=== PATIENT | female | born 1955 | race African-American/Black ===

== ENCOUNTER → 2017-05-20 16:30 | Outpatient (CLI) | payer MEDICARE ==
[2010-06-30 03:19] VITALS: BMI 35.0
== END | disposition home or self-care (01) ==
LOC: D.MAMMO 09:15
DX: Z12.31 Encounter for screening mammogram for malignant neoplasm of breast (principal)

== ENCOUNTER → 2017-10-16 09:21 | Outpatient (CLI) | payer MEDICARE ==
[2010-06-30 03:19] VITALS: BMI 35.0
== END | disposition home or self-care (01) ==
LOC: D.MRI 09:21
DX: M25.511 Pain in right shoulder (principal)

== ENCOUNTER 2018-03-30 18:26 | Emergency (ER) | payer MEDICARE ==
[~2018-03-30] VITALS: Ht 165.1 cm; Wt 90.9 kg
[2018-03-30 18:29] VITALS: Ht 165.1 cm; Wt 90.9 kg
[2018-03-30] MEDS ORDERED: K-DUR20 MEQ PO (18:31)
[2018-03-30] MEDS ORDERED: OMEPRAZOLE20 M1 PO (18:32)
[2018-03-30] MEDS ORDERED: PLAVIX75 MG PO (18:32)
[2018-03-30 19:03] LABS: APPEARANCE HAZY (CLEAR); BILIRUBIN NEGATIVE (NEGATIVE); COLOR YELLOW (YELLOW); GLUCOSE NEGATIVE (NEGATIVE); KETONE NEGATIVE (NEGATIVE); NITRITE POSITIVE (NEGATIVE); PROTEIN NEGATIVE (NEGATIVE); UROBILINOGEN NORMAL (NORMAL)
[2018-03-30 19:04] LABS: BASOPHILS 0.2 % (0-2); EOSINOPHILS 1.6 % (0-7); HEMOGLOBIN 12.8 g/dL (12-16); IMMATURE GRANULOCYTES 0.1 % (0-5); LYMPHOCYTES 31.9 % (15-50); MCH 28.1 pg (26.0-34.0); MCV 87.7 fL (80.0-100.0); MEAN PLATELET VOLUME 11.3 fL (7.4-10.4); MONOCYTES 3.9 % (2-11); NEUTROPHILS 62.3 % (40-80); PLATELET COUNT 171 10x3/uL (130-400); RBC 4.56 10x6/uL (4.00-5.40); RDW 12.9 % (11.5-14.5); WBC 8.5 10x3/uL (4.8-10.8)
[2018-03-30 19:06] LABS: BACTERIA MANY /hpf (NONE SEEN); EPITHELIAL CELLS 0-5 /hpf (0-5); RED CELLS - URINE 0-5 /hpf (0-5)
[2018-03-30 19:19] LABS: ALBUMIN 3.1 g/dL (3.4-5.0); ANION GAP 7.2 mmol/L (8-16); BILIRUBIN - TOTAL 0.33 mg/dL (0.2-1.3); CALCIUM 8.4 mg/dL (8.5-10.1); CARBON DIOXIDE 27.9 mmol/L (21.0-32.0); CREATININE - SERUM 0.9 mg/dL (0.6-1.3); POTASSIUM - SERUM 3.1 mmol/L (3.5-5.1); PROTEIN - SERUM 7.1 g/dL (6.4-8.2)
[2018-03-30] MEDS ORDERED: MACROBID100 MG PO (21:48)
[2018-03-30 22:15] VITALS: BP 148/90
== END 2018-03-30 22:15 | disposition home or self-care (01) ==
LOC: D.ER 18:26
PROVIDERS: Family Medicine
DX: R10.11 Right upper quadrant pain (principal); E87.6 Hypokalemia; N39.0 Urinary tract infection, site not specified; I10 Essential (primary) hypertension; F17.200 Nicotine dependence, unspecified, uncomplicated

== ENCOUNTER 2019-10-24 19:59 | Inpatient (IN) | payer MEDICARE, MEDICAID ==
[~2019-10-24] VITALS: Ht 165.1 cm; Wt 90.7 kg
[~2019-10-24 19:59] MED LIST: K-DUR20 MEQ PO; MACROBID100 MG PO; OMEPRAZOLE20 M1 PO; PLAVIX75 MG PO
[2019-10-24 20:00] VITALS: BP 124/70
[2019-10-24 20:46] LABS: BASOPHILS 0.2 % (0-2); EOSINOPHILS 0.2 % (0-7); HEMATOCRIT 30.5 % (36.0-48.0); HEMOGLOBIN 9.9 g/dL (12-16); IMMATURE GRANULOCYTES 0.4 % (0-5); LYMPHOCYTES 17.9 % (15-50); MCH 27.5 pg (26.0-34.0); MCHC 32.5 g/dL (31.0-37.0); MCV 84.7 fL (80.0-100.0); MEAN PLATELET VOLUME 10.2 fL (7.4-10.4); MONOCYTES 4.8 % (2-11); NEUTROPHILS 76.5 % (40-80); RDW 12.7 % (11.5-14.5); WBC 12.5 10x3/uL (4.8-10.8)
[2019-10-24 20:52] LABS: APTT 39.1 SECONDS (22.8-39.4); INR 0.98 (0.85-1.17)
[2019-10-24 20:53] LABS: PLATELET COUNT 325 10x3/uL (130-400)
[2019-10-24 20:58] LABS: BILIRUBIN NEGATIVE (NEGATIVE); KETONE NEGATIVE (NEGATIVE); NITRITE NEGATIVE (NEGATIVE); UROBILINOGEN NORMAL (NORMAL)
[2019-10-24 21:06] LABS: BACTERIA FEW /hpf (NONE SEEN); EPITHELIAL CELLS 0-5 /hpf (0-5); WHITE CELLS - URINE 0-5 /hpf (0-5)
[2019-10-24 21:10] VITALS: BP 134/68
[2019-10-24 21:19] LABS: ALBUMIN 2.2 g/dL (3.4-5.0); ALKALINE PHOSPHATASE 111 U/L (30-120); ALT (SGPT) 28 U/L (10-68); CALC OSMOLALITY 260 mosm/kg (275-300); CALCIUM 8.7 mg/dL (8.5-10.1); CARBON DIOXIDE 28.1 mmol/L (21.0-32.0); CHLORIDE - SERUM 94 mmol/L (98-107); CREATINE KINASE 196 UL (21-215); CREATININE - SERUM 0.7 mg/dL (0.6-1.3); GLUCOSE 107 mg/dL (74-106); PRO BNP 132 pg/mL (0-125); PROTEIN - SERUM 7.5 g/dL (6.4-8.2); SODIUM 131 mmol/L (136-145); THYROID STIMULATING HORMONE 1.05 uIU/mL (0.36-3.74); UREA NITROGEN 6 mg/dL (7-18); eGFR NON AFRICAN AMERICAN 89 mL/min (90-120)
[2019-10-24 21:30] VITALS: BP 127/63
[2019-10-24 21:40] LABS: C-REACTIVE PROTEIN 19.3 mg/dL (0.0-0.9); TROPONIN-I < 0.017 ng/mL (0.000-0.060)
[2019-10-24 21:46] LABS: POTASSIUM - SERUM 2.7 mmol/L (3.5-5.1)
--- NOTE | 2019-10-24 23:13 | NUR ---
RECIEVED TO ROOM. AWAKE,ALERT.NO COMPLAINTS AT PRESENT. IV TO LFA INTACT WITHOUT REDNESS OR EDEMA NOTED. OPEN SORE TO RIGHT ANKLE WITHOUT DRAINAGE NOTED. FOUL SMELL. FOR OR IN AM. CL IN REACH
[2019-10-25 04:00] VITALS: BP 135/75
[2019-10-25 05:00] VITALS: BP 124/70; BMI 33.3
[2019-10-25 09:27] VITALS: BP 114/69
[2019-10-25 10:39] VITALS: Ht 165.1 cm; Wt 90.7 kg
--- NOTE | 2019-10-25 15:38 | NUR ---
IV INFILTRATED. NEW 20G PLACED RIGHT AC. TOLERATED WELL. CONTINUING TO MONITOR
[2019-10-25 17:48] VITALS: BP 132/74
--- NOTE | 2019-10-25 19:55 | NUR ---
oliver in bed with alysia at bedside. sleeping at times. iv to right ac with ns at 125ml/hr. no needs at this time. call light and water in reach.
[2019-10-25 20:28] VITALS: BP 167/77
[2019-10-26 00:24] VITALS: BP 172/74
[2019-10-26 07:19] LABS: BASOPHILS 0.2 % (0-2); EOSINOPHILS 0.2 % (0-7); HEMATOCRIT 30.2 % (36.0-48.0); HEMOGLOBIN 9.6 g/dL (12-16); IMMATURE GRANULOCYTES 0.3 % (0-5); LYMPHOCYTES 13.5 % (15-50); MCHC 31.8 g/dL (31.0-37.0); MCV 84.8 fL (80.0-100.0); MONOCYTES 4.7 % (2-11); NEUTROPHILS 81.1 % (40-80); PLATELET COUNT 319 10x3/uL (130-400); RBC 3.56 10x6/uL (4.00-5.40); RDW 12.8 % (11.5-14.5); WBC 11.9 10x3/uL (4.8-10.8)
[2019-10-26 07:39] LABS: ALBUMIN 2.1 g/dL (3.4-5.0); ALKALINE PHOSPHATASE 151 U/L (30-120); ALT (SGPT) 29 U/L (10-68); BILIRUBIN - TOTAL 0.45 mg/dL (0.2-1.3); CALC OSMOLALITY 271 mosm/kg (275-300); CALCIUM 8.2 mg/dL (8.5-10.1); CARBON DIOXIDE 27.8 mmol/L (21.0-32.0); CHLORIDE - SERUM 99 mmol/L (98-107); GLUCOSE 95 mg/dL (74-106); MAGNESIUM - SERUM 1.8 mg/dL (1.8-2.4); PROTEIN - SERUM 6.4 g/dL (6.4-8.2); SODIUM 137 mmol/L (136-145); UREA NITROGEN 6 mg/dL (7-18); VANCOMYCIN - TROUGH 7.7 ug/mL (10.0-20.0)
[2019-10-26 07:41] LABS: CREATININE - SERUM 0.5 mg/dL (0.6-1.3); POTASSIUM - SERUM 3.4 mmol/L (3.5-5.1); eGFR NON AFRICAN AMERICAN > 90 mL/min (90-120)
[2019-10-26 08:41] VITALS: BP 131/76
[2019-10-26 13:12] VITALS: BP 140/77
--- NOTE | 2019-10-26 16:48 | NUR ---
RECEIVED REPORT FROM BEE ADAIR IN RECOVERY.
[2019-10-26 17:00] VITALS: BP 114/67
--- NOTE | 2019-10-26 17:06 | NUR ---
BACK IN ROOM. RESTING WITH EYES CLOSED. EASY TO WAKE. VS STABLE: BP: 110/64 HR: 76 SPO2: 93 0N 1.5L/NC TEMP: 98.2 RIGHT BKA HAS WPUND V.A.C. AND WRAPPED WITH GUZMAN WRAP. DRESSING IS CLEAN, DRY AND INTACT. RLE ELEVATED ON A PILLOW. AT BEDSIDE. WILL CONTINUE TO MONITOR
--- NOTE | 2019-10-26 20:01 | NUR ---
RESTING IN BED NAPPING ALERT AND ORENTED ABLE TO VOICE NEEDS AND WANTS TO STAFF. IV TO LEFT AC WITH NS AT 125 ML/HR.DRESSING CLEAN DRY AND INTACT TO RIGHT BKA. NO NEESDS AT THIS TIME. HUSBEN AT BEDSIDE.
[2019-10-27 04:00] VITALS: BP 115/65
[2019-10-27 06:44] LABS: BASOPHILS 0 % (0-2); EOSINOPHILS 0 % (0-7); HEMATOCRIT 27.9 % (36.0-48.0); HEMOGLOBIN 8.7 g/dL (12-16); IMMATURE GRANULOCYTES 0.3 % (0-5); LYMPHOCYTES 12.8 % (15-50); MCH 26.4 pg (26.0-34.0); MCHC 31.2 g/dL (31.0-37.0); MCV 84.8 fL (80.0-100.0); MEAN PLATELET VOLUME 10.3 fL (7.4-10.4); MONOCYTES 5.7 % (2-11); NEUTROPHILS 81.2 % (40-80); PLATELET COUNT 300 10x3/uL (130-400); RBC 3.29 10x6/uL (4.00-5.40); RDW 12.8 % (11.5-14.5); WBC 12.8 10x3/uL (4.8-10.8)
[2019-10-27 06:47] LABS: ALKALINE PHOSPHATASE 114 U/L (30-120); ALT (SGPT) 28 U/L (10-68); BILIRUBIN - TOTAL 0.21 mg/dL (0.2-1.3); CALCIUM 7.6 mg/dL (8.5-10.1); CARBON DIOXIDE 24.2 mmol/L (21.0-32.0); CHLORIDE - SERUM 103 mmol/L (98-107); GLUCOSE 112 mg/dL (74-106); MAGNESIUM - SERUM 1.8 mg/dL (1.8-2.4); POTASSIUM - SERUM 3.1 mmol/L (3.5-5.1); SODIUM 136 mmol/L (136-145)
[2019-10-27 06:57] LABS: ALBUMIN 1.5 g/dL (3.4-5.0); CALC OSMOLALITY 271 mosm/kg (275-300); CREATININE - SERUM 0.7 mg/dL (0.6-1.3); UREA NITROGEN 9 mg/dL (7-18); eGFR NON AFRICAN AMERICAN 89 mL/min (90-120)
[2019-10-27 09:36] VITALS: BP 125/66
--- NOTE | 2019-10-27 09:55 | OP ---
PATIENT NAME: YEIMI SAUCEDO MEDICAL RECORD: [id number] :51 LOCATION:D[id number] ADMISSION DATE:10/24/19 SURGEON: RAJESH CONNOR DO DATE OF OPERATION: 10/26/2019 PROCEDURE PERFORMED: Right below-knee amputation. PREOPERATIVE DIAGNOSIS: Right lower limb ischemia, peripheral vascular disease, and foot infection. POSTOPERATIVE DIAGNOSIS: Right lower limb ischemia, peripheral vascular disease, and foot infection. INDICATIONS: Ms. Saucedo is a 64-year-old female who has had a blood flow problems to the right lower extremity. She had stents put in, revascularized, that did not give blood flow back to the foot. She had been treated by another physician to try to save the foot, but to no avail. She was admitted from the ER, was due to see me in clinic, anyways for the same problem. I saw her in the ER and told her that we need to amputate it. We had her on the schedule for yesterday, but due to OR constraints, could not do it, it was Labor holiday. I told her I would do it today. I informed that she will be at risk for further infection, bleeding, damage to nerves and vessels in the area phantom pain, continued pain, reinfection of the stump and need for above-knee amputation and if this did not cut, blood clots, and even and she signed the consent. SURGEON: Rajesh Connor DO DESCRIPTION OF THE PROCEDURE: The patient received the block per anesthesia in the preoperative area and taken to operative suite, laid in supine position, given 2 grams Ancef preoperatively. The patient was sedated and LMA was placed. Right lower extremity was then prepped and draped in sterile fashion. A timeout was performed and everyone was agreeance with correct side, site, patient and procedure and I then began by marking out the incision and the right lower extremity was exsanguinated with a tourniquet and the tourniquet was inflated to 350 mmHg and was up for 22 minutes. I then began by cutting through the skin down to the fascia and then used the plasma blade to cut through the fascia, went compartment by compartment, tying off any vessels with saw. I was assisted by Hitesh Puga, certified surgical anesthesiologist assistant certified. He assisted with tying the vessels and with closing during the case. Once I had tied all the vessels coming through each compartment making a posterior flap with the gastroc. I cut the tibia and bevelled the cut on the anterior tibia and then cut the fibula cm above that. I then removed the leg and then confirmed all the vessels were tied and tied a few more that we did not get. The tourniquet was then let down. Any bleeding was coagulated with the Aquamantys. I then drilled holes in the tibia and with #2 Ethibond sutured up the gastroc, up over the stump of the tibia into place using a Neil-Saul stitch. The fascia was then closed with #1 Vicryl in a [id number] fashion and then the skin 2-0 Vicryl in inverted interrupted fashion or 2-0 Prolene in a horizontal mattress fashioned on the skin. She was then dressed with a Prevena VAC or the surface restore, and awakened and taken to recovery in stable condition. BLOOD LOSS: Minimal. COMPLICATIONS: None. OPERATIVE REPORT [id number] YEIMI SAUCEDO TRANSINT:[id number] Voice Confirmation ID: [id number] DOCUMENT ID: [id number] RAJESH CONNOR DO at 0955 CC: [id number] DICTATION DATE: 10/26/19 1543 EARLY CHILDHOOD ASSOCIATE: 10/27/19 0105 ADM IN [facility] [address] [place] [address]
[2019-10-27 13:24] VITALS: BP 114/62
[2019-10-27 18:21] VITALS: BP 128/72
[2019-10-27 20:00] VITALS: BP 108/53
[2019-10-28] VITALS: BP 131/67
[2019-10-28 04:00] VITALS: BP 128/67
[2019-10-28 07:16] LABS: BASOPHILS 0.1 % (0-2); EOSINOPHILS 0.4 % (0-7); HEMATOCRIT 27.3 % (36.0-48.0); HEMOGLOBIN 8.6 g/dL (12-16); IMMATURE GRANULOCYTES 0.5 % (0-5); LYMPHOCYTES 24.1 % (15-50); MCH 26.8 pg (26.0-34.0); MCHC 31.5 g/dL (31.0-37.0); MEAN PLATELET VOLUME 9.3 fL (7.4-10.4); MONOCYTES 5.3 % (2-11); NEUTROPHILS 69.6 % (40-80); PLATELET COUNT 284 10x3/uL (130-400); RBC 3.21 10x6/uL (4.00-5.40); WBC 11.1 10x3/uL (4.8-10.8)
[2019-10-28 07:34] LABS: ALBUMIN 1.6 g/dL (3.4-5.0); ALKALINE PHOSPHATASE 102 U/L (30-120); ALT (SGPT) 29 U/L (10-68); BILIRUBIN - TOTAL 0.36 mg/dL (0.2-1.3); CALC OSMOLALITY 271 mosm/kg (275-300); CALCIUM 7.7 mg/dL (8.5-10.1); CARBON DIOXIDE 26.8 mmol/L (21.0-32.0); CHLORIDE - SERUM 104 mmol/L (98-107); CREATININE - SERUM 0.6 mg/dL (0.6-1.3); GLUCOSE 87 mg/dL (74-106); MAGNESIUM - SERUM 1.6 mg/dL (1.8-2.4); POTASSIUM - SERUM 3.2 mmol/L (3.5-5.1); SODIUM 138 mmol/L (136-145); VANCOMYCIN - TROUGH 14.9 ug/mL (10.0-20.0); eGFR NON AFRICAN AMERICAN > 90 mL/min (90-120)
[2019-10-28 07:35] LABS: UREA NITROGEN 5 mg/dL (7-18)
--- NOTE | 2019-10-28 07:35 | NUR ---
PT IS RESTING IN BED WITH EYES OPEN. RESPIRATIONS ARE EVEN AND UNLABORED. PT IS AAO X 4 AND ANSWERS ALL QUESTIONS APPROPRIATLEY. DRESSING/WOUND VAC NOTED TO RIGHT STUMP. PT REPORTS PAIN. WILL ADDRESS. SEE EMAR. PT WITH PIV INFUSING PER ORDER TO LEFT FA WITHOUT DIFFICULTY. PT DENIES PRESENCE OF N/V/NUMBNESS/TINGLING AT THIS TIME. BED IS IN THE LOWEST POSITION. CALL LIGHT AND BEDSIDE TABLE ARE WITHIN REACH. SIDE RAILS X 2. FAMILY AT BEDSIDE. WILL CONT TO MONITOR.
[2019-10-28 09:48] VITALS: BP 119/63
--- NOTE | 2019-10-28 10:38 | MORECARE ---
CASE MANAGEMENT DISCHARGE SUMMARY PATIENT: YEIMI GAUTHIER UNIT: [id number] ADM DATE: 10/24/19 AGE: 64 : 53 SEX: F ROOM/BED: D.2240 AUTHOR: ABAD TARIQ PHYSICIAN: REFERRING PHYSICIAN: BARB TRINH MD DATE OF SERVICE: 10/28/19 Discharge Plan Patient Name: YEIMI GAUTHIER Facility: [facility]:[place] : 1955 Planned Disposition: Anticipated Discharge Date: Discharge Date: Expected LOS: Initial Reviewer: [email or web address] Initial Review Date: 10/28/2019 Generated: 10/28/19 11:37 am DCPIA - Discharge Planning Initial Assessment Updated by [email or web address]: [place]ney Park on 10/28/19 10:37 am * Is the patient Alert and Oriented? Yes * Preadmission Environment Home with Family * ADLs Independent * Equipment None * Community resources currently utilized None * Additional services required to return to the preadmission environment? Yes * Can the patient safely return to the preadmission environment? Yes * Has this patient been hospitalized within the prior 30 days at any hospital? No Patient Name: YEIMI GAUTHIER Page [phone] at 1038 All edits/amendments must be made on the electronic document DICTATION DATE: 10/28/19 1037 PUBLIC HEALTH ENGINEER: JANELLE 10/28/19 1037 RPT#: [id number] DC DATE: STATUS: ADM IN [facility] [address] [place] [address] END OF REPORT
--- NOTE | 2019-10-28 10:47 | MORECARE ---
CASE MANAGEMENT DISCHARGE SUMMARY PATIENT: YEIMI GAUTHIER UNIT: [id number] ADM DATE: 10/24/19 AGE: 64 : 53 SEX: F ROOM/BED: D.2240 AUTHOR: CHANDNI,DOC PHYSICIAN: REFERRING PHYSICIAN: BARB TRINH MD DATE OF SERVICE: 10/28/19 Discharge Plan Patient Name: YEIMI GAUTHIER Facility: [facility]:[place] : 1955 Planned Disposition: Anticipated Discharge Date: Discharge Date: Expected LOS: Initial Reviewer: [id number] Initial Review Date: 10/28/2019 Generated: 10/28/19 11:46 am Comments DCP- Discharge Planning Updated by [email or web address]: [place] Park on 10/28/19 9:[address] Patient Name: YEIMI GAUTHIER Admission Status: ER Accout number: [id number] Admission Date: 10-24-2019 : 1955 Admission Diagnosis:PAIN IN RIGHT FOOT Attending: GÉNESIS TRINH Current LOS: 4 Anticipated DC Date: Planned Disposition: Primary Insurance: [facility] MEDICARE SOLUTIONS Discharge Planning Comments: CM met with patient at bedside after explaining CM role and obtaining verbal consent. CM discussed availability / needs of home health, REHAB and medical equipment. PATIENT STATES HAS NO EQUIPMENT, YARON SIGNED FOR [facility]. I WILL CALL THEM TO GET HER EQUIPMENT SET UP. PATIENT WANTS TO GO HOME WITH HH, [facility]ON SIGNED FOR [facility] . I WILL FAX REFERRAL. CM TO FOLLOW AND ASSIST NEEDED. Geriatric Assistant: Daphney Park DCPIA - Discharge Planning Initial Assessment Updated by [email or web address]: [place] on 10/28/19 10:37 am * Is the patient Alert and Oriented? Yes * Preadmission Environment Home with Family * ADLs Independent * Equipment None * Community resources currently utilized None * Additional services required to return to the preadmission environment? Yes * Can the patient safely return to the preadmission environment? Yes * Has this patient been hospitalized within the prior 30 days at any hospital? No External Providers [facility] Next Contact Date: Service Request Date: Service Type: Resolution: Reviewer: Comments: External Provider: [facility] Next Contact Date: Service Request Date: Service Type: Resolution: Reviewer: Comments: Coverage Notice Reviewer: [id number] - [place] Notice Issued Date-Time: 10/28/2019 10:39 Notice Type: Patient Choice Letter Notice Delivered To: Patient Relationship to Patient: Driver Education Road Instructor Name: Delivery Method: HAND - Hand Delivered Monica Days: Prior Verbal Notification: Recipient Understood Notice: Yes Recipient Signature: Yes Med Rec Note Co-signed by Attending: Coverage Notice Comment: [facility] Last DP export: 10/28/19 9:38 a Patient Name: YEIMI GAUTHIER Page [phone] at 1047 All edits/amendments must be made on the electronic document DICTATION DATE: 10/28/19 1046 HOISTMAN: JANELLE 10/28/19 1046 RPT#: [id number] DC DATE: STATUS: ADM IN [facility] [address] [place] [address] END OF REPORT
[2019-10-28 12:00] VITALS: BP 128/76
[2019-10-28] MEDS ORDERED: BACTRIM DS TAB1 EAC1 PO (12:55)
[2019-10-28] MEDS ORDERED: HYDROCODON-ACE1 EA10 PO (13:20)
[2019-10-28] MEDS ORDERED: NICODERM CQ1 EAC3 TOPICAL (14:18)
--- NOTE | 2019-10-28 14:29 | NUR ---
PATIENT MAY RESUME HOME DOSE OF [facility]
--- NOTE | 2019-10-28 14:37 | MORECARE ---
CASE MANAGEMENT DISCHARGE SUMMARY PATIENT: YEIMI GAUTHIER UNIT: [id number] ADM DATE: 10/24/19 AGE: 64 : 53 SEX: F ROOM/BED: D.2240 AUTHOR: CHANDNI,DOC PHYSICIAN: REFERRING PHYSICIAN: BARB TRINH MD DATE OF SERVICE: 10/28/19 Discharge Plan Patient Name: YEIMI GAUTHIER Facility: [facility]:[place] : 1955 Planned Disposition: Anticipated Discharge Date: Discharge Date: Expected LOS: Initial Reviewer: [email or web address] Initial Review Date: 10/28/2019 Generated: 10/28/19 3:37 pm Comments DCP- Discharge Planning Updated by [email or web address]: [place] Park on 10/28/19 9:[address] Patient Name: YEIMI GAUTHIER Admission Status: ER Accout number: [id number] Admission Date: 10-24-2019 : 1955 Admission Diagnosis:PAIN IN RIGHT FOOT Attending: GÉNESIS TRINH Current LOS: 4 Anticipated DC Date: Planned Disposition: Primary Insurance: [facility] MEDICARE SOLUTIONS Discharge Planning Comments: CM met with patient at bedside after explaining CM role and obtaining verbal consent. CM discussed availability / needs of home health, REHAB and medical equipment. PATIENT STATES HAS NO EQUIPMENT, YARON SIGNED FOR [facility]. I WILL CALL THEM TO GET HER EQUIPMENT SET UP. PATIENT WANTS TO GO HOME WITH HH, Y[facility]ON SIGNED FOR [facility]. I WILL FAX REFERRAL. CM TO FOLLOW AND ASSIST NEEDED. Steam Heating Installer: Daphney Park DCPIA - Discharge Planning Initial Assessment Updated by [email or web address]: [place] on 10/28/19 10:37 am * Is the patient Alert and Oriented? Yes * Preadmission Environment Home with Family * ADLs Independent * Equipment None * Community resources currently utilized None * Additional services required to return to the preadmission environment? Yes * Can the patient safely return to the preadmission environment? Yes * Has this patient been hospitalized within the prior 30 days at any hospital? No Coverage Notice Reviewer: [id number] - [place] Notice Issued Date-Time: 10/28/2019 10:39 Notice Type: Patient Choice Letter Notice Delivered To: Patient Relationship to Patient: Leader Tier Name: Delivery Method: HAND - Hand Delivered Monica Days: Prior Verbal Notification: Recipient Understood Notice: Yes Recipient Signature: Yes Med Rec Note Co-signed by Attending: Coverage Notice Comment: [facility] Last DP export: 10/28/19 9:47 a Patient Name: YEIMI GAUTHIER Page [phone] at 1437 All edits/amendments must be made on the electronic document DICTATION DATE: 10/28/191436 NETEZZA ARCHITECT: JANELLE 10/28/191436 RPT#: [id number] DC DATE: STATUS: ADM IN [facility] [address] [place] [address] END OF REPORT
--- NOTE | 2019-10-28 16:20 | NUR ---
ALL DISCHARGE INSTRUCTIONS COVERED WITH PT. PT DENIES FURTHER QUESTIONS/CONCERNS AT THIS TIME. PIV FROM LEFT WRIST REMOVED WITH CATHETER TIP INTACT. DRESSING APPLIED. ALL DISCHARGE PAPERS SIGNED BY PT. (1) PRINTED RX GIVEN TO PT. ALL SIGNED DC PAPERS PLACED IN PT CHART.
--- NOTE | 2019-10-28 16:26 | NUR ---
PT TRANSPORTED FROM ROOM VIA WHEELCHAIR FOR TRANSPORTATION HOME. PT STATES THAT SHE HAS ASSISTANCE AT HOME AND WILL BE ABLE TO GET FROM CAR INTO HOUSE WITHOUT DIFFICULTY AND WOULD LIKE FOR WHEELCHAIR TO BE DELIVERED TO HER ADDRESS. PT DENIES FURTHER QUESTIONS/CONCERNS/NEEDS AT THIS TIME. PT THANKS THIS NURSE FOR CARE GIVEN DURING THIS SHIFT.
--- NOTE | 2019-10-29 08:55 | MORECARE ---
CASE MANAGEMENT DISCHARGE SUMMARY PATIENT: YEIMI GAUTHIER UNIT: [id number] ADM DATE: 10/24/19 AGE: 64 : 53 SEX: F ROOM/BED: D.2240 AUTHOR: CHANDNI,DOC PHYSICIAN: REFERRING PHYSICIAN: BARB TRINH MD DATE OF SERVICE: 10/29/19 Discharge Plan Patient Name: YEIMI GAUTHIER Facility: [facility]:[place] : 1955 Planned Disposition: Anticipated Discharge Date: Discharge Date: 10/28/2019 Expected LOS: Initial Reviewer: [email or web address] Initial Review Date: 10/28/2019 Generated: 10/29/19 9:54 am Comments DCP- Discharge Planning Updated by [email or web address]: [place] Park on 10/28/19 9:[address] Patient Name: YEIMI GAUTHIER Admission Status: ER Accout number: [id number] Admission Date: 10-24-2019 : 1955 Admission Diagnosis:PAIN IN RIGHT FOOT Attending: GÉNESIS TRINH Current LOS: 4 Anticipated DC Date: Planned Disposition: Primary Insurance: [facility] MEDICARE SOLUTIONS Discharge Planning Comments: CM met with patient at bedside after explaining CM role and obtaining verbal consent. CM discussed availability / needs of home health, REHAB and medical equipment. PATIENT STATES HAS NO EQUIPMENT, YARON SIGNED FOR [facility]. I WILL CALL THEM TO GET HER EQUIPMENT SET UP. PATIENT WANTS TO GO HOME WITH HH, YARON SIGNED FOR [facility]. I WILL FAX REFERRAL. CM TO FOLLOW AND ASSIST NEEDED. Resident Inspector: Daphney Park DCPIA - Discharge Planning Initial Assessment Updated by [id number]: [place] on 10/28/19 10:37 am * Is the patient Alert and Oriented? Yes * Preadmission Environment Home with Family * ADLs Independent * Equipment None * Community resources currently utilized None * Additional services required to return to the preadmission environment? Yes * Can the patient safely return to the preadmission environment? Yes * Has this patient been hospitalized within the prior 30 days at any hospital? No Coverage Notice Reviewer: [id number] - [place] Notice Issued Date-Time: 10/28/2019 10:39 Notice Type: Patient Choice Letter Notice Delivered To: Patient Relationship to Patient: Dry Food Products Mixer Name: Delivery Method: HAND - Hand Delivered Monica Days: Prior Verbal Notification: Recipient Understood Notice: Yes Recipient Signature: Yes Med Rec Note Co-signed by Attending: Coverage Notice Comment: [facility] Last DP export: 10/28/19 1:37 p Patient Name: YEIMI GAUTHIER Page [id number] at 0855 All edits/amendments must be made on the electronic document DICTATION DATE: 10/29/19854 SENIOR [employer] NET DEVELOPER: JANELLE 10/29/1957 RPT#: [id number] DC DATE:10/28/19 STATUS: DIS IN [facility] [address] [place] [address] END OF REPORT
== END 2019-10-28 16:31 | disposition home health service (06) | DRG 580 ==
LOC: D.ER 19:59 → D.MS 20:23
PROVIDERS: Family Medicine; Orthopaedic Surgery; ADMIT Emergency Medicine; ATTEND Emergency Medicine
PROC: 0Y6H0Z2 Detachment at Right Lower Leg, Mid, Open Approach (ICD-10-PCS; principal; 2019-10-26 12:00)
DX: L08.9 Local infection of the skin and subcutaneous tissue, unspecified (principal); F17.213 Nicotine dependence, cigarettes, with withdrawal; E87.1 Hypo-osmolality and hyponatremia; I73.9 Peripheral vascular disease, unspecified; D64.9 Anemia, unspecified; I10 Essential (primary) hypertension; E87.6 Hypokalemia

== ENCOUNTER 2019-11-20 21:16 | Emergency (ER) | payer MEDICARE, MEDICAID ==
[~2019-11-20] VITALS: Ht 165.1 cm; Wt 90.9 kg
[~2019-11-20 21:16] MED LIST changes: +BACTRIM DS TAB1 EAC1 PO; +HYDROCODON-ACE1 EA10 PO; +NICODERM CQ1 EAC3 TOPICAL
[2019-11-20 21:36] VITALS: Ht 165.1 cm; Wt 90.9 kg
[2019-11-20 22:29] LABS: CALC OSMOLALITY 262 mosm/kg (275-300); CALCIUM 8.7 mg/dL (8.5-10.1); CARBON DIOXIDE 26.3 mmol/L (21.0-32.0); CHLORIDE - SERUM 98 mmol/L (98-107); CREATININE - SERUM 0.7 mg/dL (0.6-1.3); GLUCOSE 120 mg/dL (74-106); POTASSIUM - SERUM 3.4 mmol/L (3.5-5.1); SODIUM 131 mmol/L (136-145); UREA NITROGEN 10 mg/dL (7-18); eGFR NON AFRICAN AMERICAN 89 mL/min (90-120)
[2019-11-20 22:31] LABS: BASOPHILS 0.2 % (0-2); EOSINOPHILS 0.9 % (0-7); HEMATOCRIT 36.1 % (36.0-48.0); HEMOGLOBIN 11.5 g/dL (12-16); IMMATURE GRANULOCYTES 0.2 % (0-5); LYMPHOCYTES 18.7 % (15-50); MCH 27.3 pg (26.0-34.0); MCHC 31.9 g/dL (31.0-37.0); MCV 85.5 fL (80.0-100.0); MEAN PLATELET VOLUME 10.6 fL (7.4-10.4); MONOCYTES 5.3 % (2-11); NEUTROPHILS 74.7 % (40-80); RBC 4.22 10x6/uL (4.00-5.40); RDW 14.5 % (11.5-14.5); WBC 12.3 10x3/uL (4.8-10.8)
[2019-11-20 22:33] LABS: PLATELET COUNT 212 10x3/uL (130-400)
[2019-11-20 22:37] LABS: ALBUMIN 2.9 g/dL (3.4-5.0); ALKALINE PHOSPHATASE 109 U/L (30-120); ALT (SGPT) 10 U/L (10-68); AMYLASE - SERUM 24 U/L (25-115); BILIRUBIN - TOTAL 0.66 mg/dL (0.2-1.3); PROTEIN - SERUM 7.7 g/dL (6.4-8.2); TROPONIN-I < 0.017 ng/mL (0.000-0.060)
[2019-11-20 22:39] LABS: LIPASE 30 U/L (73-393)
[2019-11-20 23:02] LABS: BILIRUBIN NEGATIVE (NEGATIVE); KETONE NEGATIVE (NEGATIVE); NITRITE NEGATIVE (NEGATIVE); UROBILINOGEN NORMAL mg/dL (< 2)
[2019-11-20 23:05] LABS: BACTERIA FEW HPF (NONE SEEN); EPITHELIAL CELLS RARE /hpf (0-5); WHITE CELLS - URINE 0-5 HPF (0-4)
[2019-11-21] MEDS ORDERED: ALBUTEROL SULF8.5 GM INH (00:09)
[2019-11-21] MEDS ORDERED: LEVAQUIN750 MG PO (00:09)
[2019-11-21 00:49] VITALS: BP 136/88
== END 2019-11-21 00:50 | disposition home or self-care (01) ==
LOC: D.ER 21:16
PROVIDERS: Emergency Medicine
DX: J18.9 Pneumonia, unspecified organism (principal); R10.9 Unspecified abdominal pain; I10 Essential (primary) hypertension; K21.9 Gastro-esophageal reflux disease without esophagitis; Z72.0 Tobacco use